=== PATIENT | male | born 1975 | race Caucasian/White ===

== ENCOUNTER 2016-11-27 23:22 | Inpatient (IN) | payer OTHER ==
[~2016-11-27] VITALS: Ht 180.3 cm; Wt 106.6 kg
[~2016-11-27 23:22] MED LIST: AMIODARONE HCL (50 MG/ ML) 3 ML VIAL IV ONE; ATROPINE SULF 0.5 MG/5ML SYR IV ONE; CALCIUM CHLOR(10%) 100MG/ML 10ML SYRINGE IV ONE; EPINEPHrine HCL 1 MG/10 ML SYRG IV ONE; MAGNESIUM SULF 50% 40 MEQ/10 ML VL IV ONE; SODIUM BICARBONATE 8.4% INJ 50ML SYRINGE IV ONE
[2016-11-27] MEDS ORDERED: SODIUM BICARBONATE 8.4% INJ 50ML SYRINGE ONE (23:31)
[2016-11-27] MEDS ORDERED: AMIODARONE HCL 900 MG IV ONE (23:33)
[2016-11-27] MEDS ORDERED: NOREPINEPHRINE BITARTRATE 250 ML IV ONE (23:37)
[2016-11-27] MEDS ORDERED: AMIODARONE HCL 900 MG in DEXTROSE 500 ML IV SCH (23:48)
[2016-11-27] MEDS ORDERED: SODIUM CHLORIDE 0.9% 1,000 ML IV ONE ×2 (23:54)
[2016-11-28] VITALS (8 sets, daily range): BP systolic 60–158; BP diastolic 45–88
[2016-11-28 00:04] LABS: Basophils # (auto) 0.2 uL; Basophils % (auto) 1.2 % (0.0-2.0); DEFINITIVE SEE PRINTOUT; Eosinophils # (auto) 0.2 uL; Eosinophils % (auto) 1.2 % (0.0-7.0); Hematocrit 51.4 % (41.0-53.0); Hemoglobin 16.4 g/dL (13.5-17.5); Lymphocytes # (auto) 6.2 uL; Lymphocytes % (auto) 50.2 % (10.0-50.0); Mean Corpuscular Hemoglobin 29.7 pg (28.0-32.0); Mean Corpuscular Volume 92.9 fL (80.0-100.0); Mean Platelet Volume 8.2 fL (7.4-10.4); Monocytes # (auto) 0.9 uL; Monocytes % (auto) 6.8 % (0.0-12.0); Neutrophils # (auto) 5.1 uL; Neutrophils % (auto) 40.6 % (37.0-80.0); Platelet Count (auto) 245 10^3/uL (140-450); Red Cell Distribution Width 13.6 % (11.6-16.0); White Blood Cell 12.6 10^3/uL (4.4-10.8)
[2016-11-28] MEDS ORDERED: SODIUM BICARBONATE 8.4% INJ 50ML SYRINGE ONE ×3 (00:13→05:35)
[2016-11-28] MEDS ORDERED: ATROPINE SULF 0.5 MG/5ML SYR IV ONE (00:15)
[2016-11-28] MEDS ORDERED: SODIUM BICARBONATE 8.4 % INJ 50ML VIAL IV ONE ×2 (00:15→05:15)
[2016-11-28 00:19] LABS: INR 1.04 (0.9-1.15); Partial Thromboplastin Time 36.4 sec (22.64-33.71); Prothrombin Time 11.3 sec (9.37-12.3)
[2016-11-28] MEDS ORDERED: PHENYLEPHRINE HCL 10 MG/ML VL ONE (00:19)
[2016-11-28 00:20] LABS: Blood COHb 17.1 % (0.5-1.5); Blood MetHb 0.3 % (0.0-1.5); HHb 5.8 % (0.0-5.0); MODE VENT - A/C; O2Hb 76.8 % (94.0-97.0); PCO2 64.8 mmHg (35.0-45.0); PCO2(T) 64.8 mmHg (35.0-45.0); PO2 104.6 mmHg (80.0-100.0); PO2(T) 104.6 mmHg (80.0-100.0); Sample Type Arterial; pH 6.887 (7.350-7.450)
[2016-11-28 00:24] LABS: Albumin 3.8 g/dL (3.4-5.0); Anion Gap 24 (5-15); Blood Urea Nitrogen 15 mg/dL (7-18); Calcium 9.1 mg/dL (8.5-10.1); Carbon Dioxide 16 mmol/L (21-32); Chloride 101 mmol/L (98-107); Glucose 230 mg/dL (74-106); Potassium 5.5 mmol/L (3.5-5.1); Sodium 141 mmol/L (136-145)
[2016-11-28 00:26] LABS: BUN/Creatinine Ratio 9.6; GFR African American 62 mL/min; GFR Non-African American 52 mL/min
[2016-11-28] MEDS ORDERED: PHENYLEPHRINE INJ 20 MG in SODIUM CHL 0.9% 248 ML IV ONE (00:30)
[2016-11-28 00:31] LABS: Alkaline Phosphatase 85 U/L (45-117); Aspartate Aminotransferase 505 U/L (15-37); Bilirubin, Total 0.3 mg/dL (0.2-1.0); Total Protein 7.5 g/dL (6.4-8.2)
[2016-11-28 00:58] LABS: Urine RBC None Seen /hpf (0 - 3)
[2016-11-28] MEDS ORDERED: SODIUM CHLORIDE 0.9% 4,000 ML IV ONE (01:00)
[2016-11-28 01:06] LABS: Urine Bilirubin Negative (Negative); Urine Blood Negative /uL (Negative); Urine Color Colorless (Yellow); Urine Glucose Normal (Normal); Urine Ketone Negative (Negative); Urine Nitrite Negative (Negative); Urine Squamous Epithelial Cell FEW /hpf (<5); Urine Urobilinogen Normal (Negative)
[2016-11-28] MEDS ORDERED: NOREPINEPHRINE BITARTRATE 250 ML IV SCH (01:15)
[2016-11-28] MEDS ORDERED: cefTRIAXone 1GM/50ML D5W 50 ML IV ONE (01:30)
[2016-11-28 01:42] LABS: Allen Test Modified; Base Excess -16.8 mmol/L (-2.0-2.0); Blood 02Sat 96.3 % (96-100); Blood COHb 10.9 % (0.5-1.5); Blood MetHb 0.3 % (0.0-1.5); HCO3 15.1 mmol/L (22-26.0); HHb 3.3 % (0.0-5.0); MODE VENT - A/C; O2Hb 85.5 % (94.0-97.0); PCO2 60.9 mmHg (35.0-45.0); PCO2(T) 60.9 mmHg (35.0-45.0); PO2 129.6 mmHg (80.0-100.0); PO2(T) 129.6 mmHg (80.0-100.0); Sample Type Arterial; pH 7.012 (7.350-7.450)
[2016-11-28 02:25] LABS: Lactic Acid w/Reflex 8.5 mmol/L (0.4-2.0)
[2016-11-28 02:26] LABS: REFLEX LACTIC ACID YES OR NO YES
[2016-11-28] MEDS ORDERED: SODIUM CHLORIDE 0.9% 1,000 ML IV ONE (02:45)
[2016-11-28] MEDS ORDERED: NITROGLYCERIN 0.4 MG SL TAB SL PRN ×2 (03:15→07:00)
[2016-11-28] MEDS ORDERED: MORPHINE SULF INJ 2 MG/ML SYRINGE 1ML IV PRN (03:15)
[2016-11-28] MEDS ORDERED: ONDANSETRON HCL 4 MG/2 ML VIAL IV PRN (03:15)
[2016-11-28] MEDS ORDERED: SODIUM BICARBONATE IV SCH (03:15)
[2016-11-28] MEDS ORDERED: SODIUM CHL IV SCH (03:15)
[2016-11-28 04:32] LABS: Allen Test Yes; Base Excess -19.1 mmol/L (-2.0-2.0); Blood 02Sat 98.6 % (96-100); Blood COHb 2.4 % (0.5-1.5); Blood MetHb 0.2 % (0.0-1.5); HCO3 10.6 mmol/L (22-26.0); HHb 1.4 % (0.0-5.0); MODE VENT - A/C; PCO2(T) 37.2 mmHg (35.0-45.0); PO2 247.2 mmHg (80.0-100.0); PO2(T) 244.8 mmHg (80.0-100.0); Room 1016-ERT; Sample Type Arterial; pH 7.063 (7.350-7.450)
[2016-11-28 05:49] LABS: Albumin 3.3 g/dL (3.4-5.0); Bilirubin, Total 0.6 mg/dL (0.2-1.0); Calcium 7.8 mg/dL (8.5-10.1); Potassium 4.2 mmol/L (3.5-5.1)
[2016-11-28] MEDS ORDERED: ALBUMIN 5% 500 ML IV ONE (05:50)
[2016-11-28] MEDS ORDERED: ALBUMIN 5% 250 ML IV ONE ×2 (06:00)
[2016-11-28 06:27] LABS: Basophils # (auto) 0 uL; Basophils % (auto) 0.1 % (0.0-2.0); CONDITION Y; Eosinophils # (auto) 0.1 uL; Eosinophils % (auto) 0.2 % (0.0-7.0); Hematocrit 53.6 % (41.0-53.0); Hemoglobin 17.8 g/dL (13.5-17.5); Lymphocytes # (auto) 2.5 uL; Lymphocytes % (auto) 9.7 % (10.0-50.0); Mean Corpuscular Hemoglobin 30.3 pg (28.0-32.0); Mean Corpuscular Hgb Conc. 33.1 g/dL (32.0-36.0); Mean Corpuscular Volume 91.4 fL (80.0-100.0); Mean Platelet Volume 7.5 fL (7.4-10.4); Monocytes # (auto) 0.7 uL; Monocytes % (auto) 2.8 % (0.0-12.0); Neutrophils # (auto) 22.9 uL; Neutrophils % (auto) 87.2 % (37.0-80.0); Platelet Count (auto) 271 10^3/uL (140-450); White Blood Cell 26.3 10^3/uL (4.4-10.8)
[2016-11-28] MEDS: SODIUM CHLORIDE 0.9% 1,000 ML IV SCH ×2 (07:00→15:37)
[2016-11-28 07:41] LABS: Hematocrit 51.5 % (41.0-53.0); Hemoglobin 17.1 g/dL (13.5-17.5)
[2016-11-28] MEDS ORDERED: AMIODARONE HCL 900 MG in DEXTROSE 500 ML IV SCH ×2 (08:00→14:00)
[2016-11-28 08:05] LABS: Lactic Acid w/Reflex 8.2 mmol/L (0.4-2.0)
[2016-11-28 08:19] LABS: REFLEX LACTIC ACID YES OR NO NO
[2016-11-28 08:36] LABS: Allen Test Yes; Base Excess -7.4 mmol/L (-2.0-2.0); Blood 02Sat 90.9 % (96-100); Blood COHb 1.3 % (0.5-1.5); Blood MetHb 0.3 % (0.0-1.5); HCO3 19.3 mmol/L (22-26.0); MODE VENT - A/C; O2Hb 89.4 % (94.0-97.0); PCO2 43.1 mmHg (35.0-45.0); PCO2(T) 43.1 mmHg (35.0-45.0); PO2 64.3 mmHg (80.0-100.0); PO2(T) 64.3 mmHg (80.0-100.0); Room 1016-ERT; Sample Type Arterial; pH 7.268 (7.350-7.450)
[2016-11-28] MEDS: PHENYLEPHRINE INJ 20 MG in SODIUM CHL 0.9% 250 ML IV SCH ×2 (09:45→15:05)
[2016-11-28] MEDS ORDERED: ENOXAPARIN SOD 40 MG/0.4 ML SYRINGE SC SCH (10:00)
[2016-11-28] MEDS ORDERED: PANTOPRAZOLE 40 MG/10 ML VIAL IV SCH (10:00)
[2016-11-28] MEDS ORDERED: DOPamine 1600MCG/ML 250 ML IV STA (11:21)
[2016-11-28] MEDS ORDERED: PIPERACILLIN-TAZOB 3.375GM 100 ML IV SCH (12:00)
[2016-11-28] MEDS ORDERED: EPINEPHrine HCL INJECTION 4 MG in D5W 5% 250 ML IV SCH (15:00)
[2016-11-28] MEDS ORDERED: DOBUTamine 1000MCG/ML 250 ML IV SCH (15:00)
[2016-11-28 16:16] LABS: Basophils # (auto) 0 uL; CONDITION Y; Eosinophils # (auto) 0 uL; Eosinophils % (auto) 0.1 % (0.0-7.0); Hematocrit 51.8 % (41.0-53.0); Hemoglobin 16.8 g/dL (13.5-17.5); Lymphocytes # (auto) 1.5 uL; Lymphocytes % (auto) 10.5 % (10.0-50.0); Mean Corpuscular Hemoglobin 29.9 pg (28.0-32.0); Mean Corpuscular Hgb Conc. 32.5 g/dL (32.0-36.0); Monocytes # (auto) 0.4 uL; Monocytes % (auto) 3.1 % (0.0-12.0); Neutrophils # (auto) 12.5 uL; Neutrophils % (auto) 86.3 % (37.0-80.0); Platelet Count (auto) 200 10^3/uL (140-450); Red Cell Distribution Width 15.4 % (11.6-16.0); SUSPECT SEE PRINTOUT; White Blood Cell 14.5 10^3/uL (4.4-10.8)
[2016-11-28 16:40] LABS: INR 1.41 (0.9-1.15); Partial Thromboplastin Time 30.6 sec (22.64-33.71)
[2016-11-28 16:44] LABS: Prothrombin Time 15.4 sec (9.37-12.3)
[2016-11-28 17:08] LABS: Albumin 3.1 g/dL (3.4-5.0); BUN/Creatinine Ratio 7.6; Bilirubin, Total 0.8 mg/dL (0.2-1.0); Calcium 7.1 mg/dL (8.5-10.1); Total Protein 5.7 g/dL (6.4-8.2)
[2016-11-28] MEDS ORDERED: cefTRIAXone 1GM/50ML D5W 50 ML IV SCH (22:00)
== END 2016-11-28 16:25 | disposition expired | DRG 208 ==
LOC: EDBD 23:22 → ER 23:25 → TELE 23:26
PROVIDERS: ADMIT Nurse Practitioner; ATTEND Hospitalist
PROC: 0BH17EZ Insertion of Endotracheal Airway into Trachea, Via Natural or Artificial Opening (ICD-10-PCS; principal; 2016-11-27)
PROC: 5A1935Z Respiratory Ventilation, Less than 24 Consecutive Hours (ICD-10-PCS; 2016-11-27)
PROC: 5A12012 Performance of Cardiac Output, Single, Manual (ICD-10-PCS; 2016-11-27)
DX: J96.00 Acute respiratory failure, unspecified whether with hypoxia or hypercapnia (principal); J69.0 Pneumonitis due to inhalation of food and vomit; G93.1 Anoxic brain damage, not elsewhere classified; S36.119A Unspecified injury of liver, initial encounter; E87.2 Acidosis; N17.9 Acute kidney failure, unspecified; K92.2 Gastrointestinal hemorrhage, unspecified; I47.2 Ventricular tachycardia; T71.162A Asphyxiation due to hanging, intentional self-harm, initial encounter; I46.9 Cardiac arrest, cause unspecified; F41.9 Anxiety disorder, unspecified; X58.XXXA Exposure to other specified factors, initial encounter; Y93.89 Activity, other specified; Y92.89 Other specified places as the place of occurrence of the external cause; Y99.8 Other external cause status; Z63.0 Problems in relationship with spouse or partner; I45.9 Conduction disorder, unspecified
CPT/HCPCS: 36415; 36600; 51702; 70450; 71010; 72125; 74176; 80053; 81001; 82805; 82962; 83605; 84484; 85014; 85018; 85025; 85610; 85730; 86850; 86900; 86901; 87040; 87070; 87077; 87186; 87205; 92950; 93005; 93306; 94002; 94003; 95819; 96361; 96365; 96367; 96375; 99291; C9113; J0171; J0461; J0696; J2543; J7060